=== PATIENT | male | born 1945 | race Caucasian/White ===

== ENCOUNTER → 2017-10-31 09:23 | Outpatient (CLI) | payer MEDICARE, OTHER, SELFPAY | PROVIDERS: PCP Internal Medicine; Visit Provider Orthopaedic Surgery | DX: I89.0 Lymphedema, not elsewhere classified (principal) | CPT/HCPCS: 99213 ==

== ENCOUNTER → 2017-11-12 13:00 | Outpatient (CLI) | payer MEDICARE, OTHER, SELFPAY | PROVIDERS: PCP Internal Medicine; Visit Provider Urology | DX: R31.9 Hematuria, unspecified (principal) | CPT/HCPCS: 81001; 99213 ==

== ENCOUNTER 2017-11-14 14:00 | Outpatient (RCR) | payer MEDICARE, OTHER, SELFPAY ==
--- NOTE | 2017-10-11 12:30 | PTTR_ITS ---
DATE: 10/11/17 SUBJECTIVE: Rick stating that he had an increase in back pain yesterday after sitting in chairs for prolonged mani period while he waited for his 's doctor appt. Today things have settled down. He did well with his exercises with good relief and he feels he is getting better control of his lower abdominals. Manual therapy: (12150a6). CPA's/UPA's extensively throughout the lumbar and thoracic spine at grade 1++ to 4-- for neuro facilitation as well as pain reduction, improve mobility. Neuro Re-education - (96455 x1): In hook lying position complete TRA with glut isometric contraction, the patient requiring cueing for proper lower trap stabilization and reduce over recruitment of rectus abdominals. From there we are able to proceed with the following series: 1: Hook lying level 1 scissors. 2: Hook lying leg pull x10 3: attempt shoulder segmental bridge, but this produces back pain, so regressed to just gentle posterior pelvic tilt with glut activation. 4: Hook lying abduction isometric 10 seconds x10 5: Hook lying adduction isometric 10 seconds, x10 6: Prone alternating hip extension for glut activation. He has continued care with Sandy Barrett PTA for mobilization, soft tissue work per my instructions (see her note for specifics) Direct treatment time: 30 mins Total treatment time: 30 mins A: Rick requires a significant amount of cueing for proper intrinsic activation and to allow for improvement in body awareness, multiple adjustments needed to reduce his pain, which is secondary to poor muscle recruitment. By the end of treatment, he had developed fairly good body awareness and better activation of his core intrinsics. Anticipate it will take some time to transition more onto global strengthening exercises as he struggling with his local muscle system. JH/dl
--- NOTE | 2017-10-16 11:30 | PTTR_ITS ---
DATE: 10/16/17 SUBJECTIVE: Rick stating he feels his HEP can increase his central LBP. He has been working well with intrinsic isometrics, which do not seem aggravating. His pain today is fairly minimal at a 1 to 1 03/19/09. Manual therapy: ([id number]). Sidelying unilateral knee to chest, lumbar flexion mobilizations and oscillations of a grade 4--, bilateral figure 4 and supine twist mobilizations 4--, bilateral prolonged hamstring stretching to 60 degrees bilaterally. Complete bilateral hip flexor stretching as well, but with good flexibility noted. Unilateral PAs to the lumbar spine grade 1++, STM throughout the thoracolumbar paraspinals, lumbar fascia, bilateral QL's, tone appreciated R greater than L. Therapeutic procedures (39530k6). 1: UE swimmers x10 2: LE swimmers x10 3: Hook lyin)glut strengthening via posterior pelvic tilt, patient unable to maintain proper glut recruitment and has too much weakness to perform full bridge. 4: Prone isometric glut activation with hamstring curl, 0#, x10 bilaterally. 5: Sidelying: bilateral clams x10, utilizing up regulation manual stimulation for proper glut activation which he is able to do well. 6: Sit to stand: Remarkable cueing needed for proper biomechanics and CG to limit falling when performing this due to his instability. Without cueing, he was utilizing a significant amount of compensatory movement when more on his toes and using his gastrocs to stand him up, and forward bending to keep him from falling. We did this with the table elevated. He was instructed in how to complete this at home sitting in a chair, utilizing his hand on the table or counter for support, after patient demonstrated appropriate squat and muscle activation to utilize including his gluts, weight in his heels, and intrinsic TRA, and lower traps. Direct treatment time: 60 mins Total treatment time: 60 mins JH/dl
--- NOTE | 2017-10-18 13:30 | PTTR_ITS ---
DATE: 10/18/17 OBJECTIVE: Co-treatment with CUBA Cruz. Please see her note for specifics. Therapeutic procedures ([id number]). * X See flow sheet: For glut strengthening and general conditioning focusing on appropriate glut activation. * X Provided skilled instruction in proper exercise performance: Max cueing involved in squat form and technique with his exercises. * X Provided skilled manual cues to facilitate proper muscle recruitment and/ or movement pattern: For appropriate glut activation and core stabilization. Direct treatment time: 15 minutes Total treatment time: 15 minutes Isabel Villela, REAMING MACHINE OPERATOR FOR [employer]IC
--- NOTE | 2017-10-18 15:35 | PTTR_ITS ---
DATE: 10/18/17 SUBJECTIVE: Pt states that today he feels the best that he has in a while. He changed his chair that he sits in to work on his computer which he thinks that this is helping. He has been working on his glute activation. OBJECTIVE: Therapeutic procedures (86271u0). * X See flow sheet * X Provided skilled instruction in proper exercise performance * X Provided skilled manual cues to facilitate proper muscle recruitment and/ or movement pattern * X Other: Cue required primarily for lower trap activation, TrA and complete up regulation stimulation through the glutes throughout for proper activation. Direct treatment time: 45 minutes Total treatment time: 45 minutes he was then seen by Isabel Villela PTA for completion of his program per my direction. ASSESSMENT: Rick is demonstrating remarkable improvements in glute activation and we are able to proceed with strengthening today. He had minimal complaints with pain so I took advantage of this and performed more conditioning which ultimately result in a decreased back pain due to decrease strain through the back as he has extensibility. PLAN: Proceed per POC progressing with strengthening is he has good tolerance as primary focus.
--- NOTE | 2017-10-22 10:40 | PTTR_ITS ---
DATE: 10/22/17 OBJECTIVE: * [X] Aquatic Therapy - (89914 x2): Patient completed a therapeutic exercise program in an aquatic setting for core strengthening and global conditioning, as per flow sheet. Patient required max cuing throughout session for core activation and postural awareness. Patient was encouraged to perform activities without pool wall support, to focus on balance reeducation and core stabilization and activation. Patient ended with deep water biking and traction. Direct treatment time: 35 minutes Total treatment time: 45 minutes
--- NOTE | 2017-10-24 10:53 | NT_ITS ---
10/24/17 Cancelled today's aquatic therapy session, due to c/o low back soreness. Ailyn Ayers, LIBRARIAN SPECIAL COLLECTIONS
--- NOTE | 2017-10-28 11:26 | PTTR_ITS ---
DATE: 10/28/17 SUBJECTIVE: Patient feels had an increase in back pain to a 4/10 after completing pool therapy, localized to his central low back. He feels is butt is stronger, but he thinks his low back is weak because of this pain he experienced following the pool. OBJECTIVE: KX applied to all codes N/A at this time. Manual therapy: (69638k). Therapeutic procedures ([id number]). * HEP review: * x See flow sheet: * x Provided skilled instruction in proper exercise performance: * x Provided skilled manual cues to facilitate proper muscle recruitment and/ or movement pattern: * x Other: Remarkable cueing needed to recruite buttocks, and improve movement pattern with exercises. Observation: Overactive lumbar paraspinals, as he tries to compensate for poor stabilizing control of glutes and TrA, poor facilitation of lower traps. Eventually able to correct movement and improve muscle pattern, with repetitive movement. He was then seen by Isabel Villela PTA for continued treatment per my direction. Direct treatment time: 30 minutes Total treatment time: 30 minutes Assessment: Continues to present with over active paraspinals, which would explain his central low back pain. He is now able to activate his TrA and glutes , but struggles with more dynamic movements. Anticipate this will continue as we work on his strengthening and isolated core recruitment. His body awareness is very poor, and patient is struggling to recognize this. Will defer aquatics until he gains better intrinsic stability, to avoid over facilitation and strain of paraspinals. Plan: Proceed per POC.
--- NOTE | 2017-10-28 15:10 | PTTR_ITS ---
DATE: 10/28/17 OBJECTIVE: Co-treatment with CUBA Cruz. Please see her note for specifics. Manual therapy: ([id number]). Performed flexion based stretching including single knee to chest, double knee to chest, double knee with rotation all performed lightly and within pt's tolerance. In prone he received IASTM down regulation through the paraspinals of the thoracic and lumbar spine. Therapeutic procedures (20015q5). Perform intrinsic stabilization exercise in supine and prone positions with constant cueing for appropriate movement mechanics and muscle facilitation. He also performed some standing rows and lower trap activation with tactile cueing for appropriate technique and muscle activation. Direct treatment time: 25 minutes Total treatment time: 25 minutes
--- NOTE | 2017-11-01 10:00 | PTTR_ITS ---
DATE: 11/01/17 SUBJECTIVE: Rick stating that he is doing remarkably better. He continues to have some low grade central LBP but overall improved since start of PT. OBJECTIVE: Therapeutic procedures (19967q2). * X See flow sheet: * X Provided skilled instruction in proper exercise performance: Continued with exercise under the supervision of Ailyn Ayers LAYAWAY CLERK per my direction see her note. Direct treatment time: 30 minutes Total treatment time: 30 minutes
--- NOTE | 2017-11-01 12:50 | IE_ITS ---
Date: October Referring: Dr. Andrea Mirza Diagnosis: Bilateral LE lymphedema P.T. 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 He reports a heaviness and limited motion in his legs due to the swelling, difficulty walking, particularly up hills and inability to run like he used to due to LE swelling. Would like education regarding methods to reduce LE swelling and improve his mobility. He is being followed by CUBA Cruz here in this clinic at this time for treatment for low back pain, spinal hypomobility, spinal curvature and intrinsic core and hip strengthening. Will continue to work with Rossy Chen per POC established 10/09/17 for strengthening and exercise issues. Will see me for short duration during his plan of care for lymphedema management. Pain Ratin/10 bilateral LE's. 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 Current Level of Function: Since his diagnosis of appendicial cancer with subsequent treatment, he has had increased LE lymphedema and swelling, which has limited his ability to perform his ADL's. He finds it difficult to complete a walk uphill that used to be easy for him, fatigue and weakness with performing any running activities. Quite a bit of difficulty with squatting and moderate difficulty with lifting objects off the floor, rolling over in bed and general mobility day to day. Previous Treatment: None for lymphedema. He is currently under Rossy Chen PT plan of care for generalized strengthening and exercise program. Social: Lives in [place] with his in a house. Does have daily activity of sitting at a computer 5-6 hrs. 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 Falls in the last year: __X__Yes - How many? __2 due to weakness post- operatively_ Reported hospitalizations in the last year - __X__ Yes - Dates of admission/ reason: for pneumonia and appendix removal. See medial records for details. Medications: Eloquis, Lasix, multi-vitamin, magnesium supplement. Quality of Life: __X__ Good Standardized Measures: Lower Extremity Functional score: __56% disability at this time__ OBJECTIVE: Observation: Examination of bilateral LE's performed. Pt with edema noted throughout bilateral LE's. Skin appears clean, dry and intact with no evidence of wounds or cellulitis. Skin is slightly pink from foot to knee bilaterally. Is firm to touch due to tightness of edema throughout skin. No swelling noted in toes or dorsum of bilateral feet. Gait: Step through gait pattern without assistive device. Flexed posture. Decreased stride and eber bilaterally. Edema: Circumferential measurements RLE Mid foot 25.5 cm 10: 28 cm 20: 25 cm 30: 35.5 cm 40: 42 cm 50: 41.5 cm 60: 42 cm 70: 46 cm LLE Mid foot 25.5 cm 10: 27 cm 20: 24.5 cm 30: 34.5 cm 40: 40.5 cm 50: 43 cm 60: 44 cm 70: 48.5 cm Lymphedema measurements and circumferential measurements indicate increased edema RLE from foot to knee and LLE from knee to thigh. Diffuse edema throughout bilateral LEs. : ROM: AROM WNL bilateral LEs. Strength: Bilateral hip flexors 4/5 Bilateral quads 4/5 Bilateral dorsiflexion and plantar flexion 5/5 Neurological: Pt is intact to light touch and proprioception throughout bilateral LEs. Motor control and kinesthetic awareness are intact. No evidence of peripheral neuropathy or sensation deficits in LEs. Special Tests: Pt negative for Stemmer sign bilateral 2nd toes of feet. Negative for swelling in dorsum of feet. Treatment: Initial evaluation and assessment of his functional abilities.IE: [id number] Patient Education: Pt issued lymphedema educational packet. Instructed in difference between primary and secondary lymphedema. At this time, pt appears to have bilateral LE secondary lymphedema due to appendicial cancer with surgical procedures as listed above.Discussed with pt anatomy and physiology of lymphatic system and educated regarding lymphatic flow. Discussed with pt management of lymphedema including Complete Decongestive Therapy (CDT) consisting of: 1. Skin care and hygiene: At this time, pt has good skin care and hygiene. Will continue with current regimen at home. 2. Manual lymphatic drainage (MLD): Will initiate MLD for bilateral LEs and educate pt regarding self MLD program. He may require assistance of spouse to perform LE MLD. Will discuss this with spouse at home. 3.Compression: At this time, pt does not have compression garments. Would benefit from open toe thigh high 20-30 mmHg bilateral compression garments.Discussion with pt regarding options. At this time, pt wishes to pursue [employer] website and purchase online. Will discuss with pt at next session proper size and assist him in ordering thigh high compression garments. 4. Exercise and elevation: Pt is currently perform PT plan of care under CUBA Cruz. Will continue as outlined by Rossy. Educated pt regarding elevation of bilateral LE's 30 min./day to reduce lymphedema and edema. Pt agreed to initiate. Direct treatment time: 60 min Total treatment time: 60 min ASSESSMENT: Patient is a 72-year-old male, referred for PT services with the diagnosis of bilateral LE lymphedema in setting of stage IV appendicial cancer s/p chemotherapy and sitoreductive surgery with umbilectomy, omentectomy, splenectomy, R hemicolectomy, L colectomy and loop ileostomy, small bowel tumor removal, appendix removal with post-operative pulmonary embolism. Patient presents with clinical signs and symptoms consistent with bilateral LE lymphedema, as demonstrated by the following impairment level findings: circumferential measurements, evident edema and swelling in bilateral LE's, heaviness and stiffness throughout bilateral LE's with decreased mobility that has required him to have increased shoe size from 13-14 to accommodate swelling in the feet. Currently swelling in the feet has resolved and he is back to size 13,but continues to maintain having a large shoe size for when swelling increases. Limited ability to run and walk uphills and perform running and ADLs at home. Impairments are contributing to the following functional limitations: Patient is assessed as: Low 58912 complexity, based on the following: History: See comorbidities and social history. Examination: See above for functional limitations and impairments. Presentation: Stable Decision-Making: Low complexity 56 % Disability based on LEFS __X__ Patient requires skilled PT intervention to remediate the above functional limitations to return to: __X__ Improve Quality of Life and functional ability G-Codes Patient's primary functional limitation is in the category of: __X__ Mobility - walking and moving around : [id number] based on LEFS Projected goal: __X__ Mobility - walking and moving around: [id number] KX modifier to be utilized as justified by above documentation for necessity of continued Physical Therapy intervention to attend to functional deficits which have not been fully remediated as they approach their Medicare cap. GOALS STG: __1__ weeks. 1. Pt independent with self MLD techniques for bilateral LE lymphedema. 2. Pt obtain bilateral open toe thigh high compression garments 20-30 mmHg and be able to don and doff independently. LTG: __3__ weeks. 1. Pt independent with lymphedema management program. 2. Decrease bilateral limb size by 2 cm. 3. Pt continue with exercise program per Rossy Chen, PT. PLAN: Patient to be seen 2 x per week, for 3 weeks, adjusting frequency of visits per patient symptoms and response to treatment. Treatment to include: X Manual therapy - [id number]: for bilateral LE lymphedema, MLD and instruction in self MLD program. X Therapeutic exercise - [id number] primary PT Rossy Chen. X Self care training [id number]: for lymphedema management program. Thank you for this referral. Please do not hesitate to contact me with any questions or concerns regarding this patient's plan of care. Sadia Caldwell PT, CLT MEDICAREDr. Mendez, please sign below and return to PT if you agree with above POC. Tommy Mendez MD Date
--- NOTE | 2017-11-01 15:06 | PTTR_ITS ---
DATE: 11/01/17 OBJECTIVE: Co-treatment with primary therapist, CUBA Cruz. Please see her note for specifics. Therapeutic procedures (61325d3). * [X] See flow sheet: Patient completed an intrinsic core stabilization and general strengthening program, as per flow sheet. Patient was able to tolerate a progression in his program today, with good tolerance. * [X] Provided skilled instruction in proper exercise performance. * [X] Provided skilled manual cues to facilitate proper muscle recruitment and/or movement pattern: Patient requires constant tactile cuing for appropriate movement mechanics and muscle activation/isolation. Direct treatment time: 30 minutes Total treatment time: 30 minutes
--- NOTE | 2017-11-05 16:10 | PTTR_ITS ---
DATE: 11/05/17 SUBJECTIVE: Pt comes with to session. Pt states he has not had a chance to review Lymphedema packet, agrees to review after today's session and come next session with questions if he has any. Pt has not reviewed [employer] website for compression garments, discussed with patient and that he would benefit from thigh high 20-30mmhg open toe bilateral compression garments, pt to look into website to decide if he wants to order from there or order from [employer]. Pain number: 0/10 OBJECTIVE: Self Care Training - (82809 x2): Pt issued handout for manual lymphatic drainage process for Bilateral LE lymphedema. Instructed patient and in the following sequence: bilateral SCF collectors , bilateral axillary nodes,, ( not abdomen MLD), bilateral groin nodes finishing with bilateral LE's proximally first, followed by distal finishing with dorsum of bilateral feet.. Pt able to perform upper body sequence, able to assist with bilateral LE drainage. Both performed good hand positions, pressure and techniques. Pt instructed to perform self MLD 1x/day. Reviewed CDT components with patient and encouraged to apply all 4 aspects together. Pt will begin home CDT with all 4 aspects tomorrow and will review process at next session. Direct treatment time: 30min Total treatment time: 30min Sadia Caldwell PT. CLT
--- NOTE | 2017-11-05 16:11 | PTTR_ITS ---
DATE: 11/05/17 OBJECTIVE: Co Treatment with CF Therapeutic procedures (97122d9). * X Provided skilled instruction in proper exercise performance: Pt completed core stabilization, glute strengthening, scapular stabilization ther ex, LE strengthening, functional sit to stands, and cardio on the Nu Step/ mini stepper. Pt required mod vc's for correction of his posture and mechanics with his ther ex specifically with his PT. Direct treatment time: 35 Total treatment time: 40
--- NOTE | 2017-11-07 15:30 | PTTR_ITS ---
DATE: 11/07/17 Co-treat with Sadia Caldwell, PT,CLT (see her note for specifics} Therapeutic procedures ([id number]). Therex consisting of open/close chain LE strengthening activities, as well as some glut strengthening, functional sit to stand, core stabilization as well as some cardiovascular on the mini stepper and NuStep. Direct treatment time: 30 mins Total treatment time: 40 mins MD/dl
--- NOTE | 2017-11-07 16:10 | PTTR_ITS ---
DATE: 11/07/17 SUBJECTIVE: Pt comes with to session. Pt states he has been performing self MLD treatment at home and feels comfortable with the process. would like to review it today. Pain number: 0/10 OBJECTIVE: Self Care Training - (54628 x1): Reviewed manual lymphatic drainage process for Bilateral LE lymphedema. Patient performed bilateral SCF collectors, bilateral axillary nodes,, ( not abdomen MLD), bilateral groin nodes finishing with bilateral LE's proximally first, followed by distal finishing with dorsum of bilateral feet. Pt able to perform techniques independently with cues for maintaining bilateral leg extension for drainage. Pt would benefit from bilateral hamstring and gastroc stretches. instructed in wall hamstring stretch for 30 seconds bilaterally and standing gastroc step stretch 30 seconds bilaterally. Pt to perform daily with self MLD. Therapeutic procedure 36996 x1: Pt issued handout for LE exercises for strengthening and movement of lymphedema. Pt able to perform independently, see handout for details ASSESSMENT: Pt doing well with skin care, self MLD, therapeutic exercise and elevation. He has ordered bilateral thigh high 20-30mmhg compression garments from [employer] and will begin using them when they arrive. Pt to transition at this time to home Lymphedema management program. Once he receives garments and wears for one week he will come back to clinic for re-measurement of LE circumferential measurements. Direct treatment time: 30min Total treatment time: 30min Sadia Caldwell PT. CLT
--- NOTE | 2017-11-12 14:46 | PTTR_ITS ---
DATE: 11/12/17 SUBJECTIVE: Pt reports that his garments came in and he is wearing them. He reports that he is afraid the the curvature in his spine might be why he is experiencing his back discomfort and is not sure if the ther ex portion of his session is helpful. OBJECTIVE: Therapeutic procedures (40001u5). * X Provided skilled instruction in proper exercise performance: I briefly spoke with PT Angelica Chen about his concerns and she would like him to make a follow up appointment with her and until then cont to complete his ther ex program. Pt completed core stabilization ther ex, glute strengthening, functional sit to stands, LE strengthening, and cardio on the mini stepper/ Nu Step. Pt was able to tolerate a slight increase in his program today. Direct treatment time: 45 Total treatment time: 50
--- NOTE | 2017-11-14 15:18 | PTTR_ITS ---
DATE: 11/14/17 OBJECTIVE: Therapeutic procedures ([id number]). * X Provided skilled instruction in proper exercise performance: Pt completed core stabilization ther ex, glute strengthening, LE strengthening, functional sit to stands, scapular stabilization ther ex, and cardio on the mini stepper and Nu Step. Direct treatment time: 30 Total treatment time: 40
== END 2017-11-15 23:59 | disposition home or self-care (01) ==
LOC: PT 14:00
PROVIDERS: PCP Internal Medicine; Referring Provider Internal Medicine; Visit Provider Internal Medicine
DX: M54.5 Low back pain (principal); M62.81 Muscle weakness (generalized); R29.898 Other symptoms and signs involving the musculoskeletal system; Z92.21 Personal history of antineoplastic chemotherapy
CPT/HCPCS: 97110; 97113; 97140; 97161; 97535; G8978

== ENCOUNTER 2017-11-20 01:19 | Outpatient (CLI) | payer MEDICARE, OTHER, SELFPAY ==
--- NOTE | 2017-11-20 10:30 | DI.RAD_ITS ---
SYMPTOMS/DIAGNOSIS: LOW BACK PAIN, M54.5 LUMBAR SPINE: AP, lateral and bilateral oblique views. Comparison CT scan of the abdomen and pelvis is 06/25/17. 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 Note is made of an inferior vena cava filter. There is surgical material seen in the right lower quadrant of the abdomen. No spondylolysis or spondylolisthesis is identified. The bones appear osteopenic. There is a superior compression deformity of L1 not present on the CT scan from 06/25/17. There is a loss of approximately 20% of the height of the vertebral body. There is also a superior compression deformity of the L2 vertebral body, not present on 06/25/17. There is a loss of approximately 20% of the height of the vertebral body. No other compression fractures are seen. Mild degenerative changes are present throughout the lumbar spine, particularly at L4-L5 where there is joint space narrowing. Facet arthropathy is present throughout. Vascular calcifications are identified. IMPRESSION: 1. Compression deformities of the superior endplates of L1 and L2 with loss of approximately 20% of the height of the vertebral bodies at each level. These were not present on the CT scan from 06/25/17. No other compression fractures are seen. 2. Mild to moderate degenerative changes in the lumbar spine. 3. Osteopenia.
== END 2017-11-20 01:39 ==
PROVIDERS: PCP Internal Medicine; Visit Provider Internal Medicine
DX: M54.5 Low back pain (principal); M85.88 Other specified disorders of bone density and structure, other site; M47.816 Spondylosis without myelopathy or radiculopathy, lumbar region; M48.56XA Collapsed vertebra, not elsewhere classified, lumbar region, initial encounter for fracture
CPT/HCPCS: 72110

== ENCOUNTER 2018-03-21 12:52 | Outpatient (REF) | payer MEDICARE, OTHER, SELFPAY ==
[2018-03-21 20:57] LABS: HCT 29.1 % (40.0-50.0); HGB 8.7 g/dL (13.5-17.5); Mean Corp. HGB Concentration 29.9 g/dL (32.0-36.0); Mean Corpuscular Hemoglobin 22.1 pg (27.0-33.0); Mean Platelet Volume 10.7 fL (8.0-11.0); Platelet Count 493 x1000/uL (130-400); RBC 3.93 m/cumm (4.50-6.00); RBC Distribution Width 18.4 % (11.8-14.1); White Blood Cell Count 5.68 k/cumm (4.4-10.8)
[2018-03-21 21:08] LABS: ALT 29 U/L (12-78); AST 33 U/L (15-37); Albumin 3.2 g/dL (3.4-5.0); Alkaline Phosphatase 112 U/L (46-116); Anion Gap 5.9 mmol/L (3-11); BUN 19 mg/dL (7-18); Bilirubin, Total 0.7 mg/dL (0.2-1.0); CO2 29.1 mmol/L (21.0-32.0); CREATININE 0.93 mg/dL (0.70-1.30); Calcium 8.8 mg/dL (8.5-10.1); Chloride 106 mmol/L (98-107); Glucose 81 mg/dL (70-100); Potassium 4.8 mmol/L (3.5-5.1); Sodium 141 mmol/L (136-145); Total Protein 6.6 g/dL (6.4-8.2)
[2018-03-24 15:12] LABS: Iron 19 ug/dL (50-175); Total Iron Binding Capacity 368 ug/dL (250-450); Transferrin Sat 5 % (20-55)
== END 2018-03-21 13:12 ==
LOC: NCHCN 12:52
PROVIDERS: PCP Internal Medicine; Visit Provider Internal Medicine
DX: C26.9 Malignant neoplasm of ill-defined sites within the digestive system (principal); R60.9 Edema, unspecified; N40.0 Benign prostatic hyperplasia without lower urinary tract symptoms; I48.91 Unspecified atrial fibrillation; Z90.81 Acquired absence of spleen; D50.9 Iron deficiency anemia, unspecified
CPT/HCPCS: 80053; 85027; 83540; 83550

== ENCOUNTER 2018-07-08 13:16 | Outpatient (REF) | payer MEDICARE, OTHER, SELFPAY ==
[2018-07-08 13:44] LABS: Bilirubin Negative (Negative); Blood Moderate (Negative); Clarity Clear; Glucose Negative (Negative); Ketones Negative (Negative); Leukocyte Esterase Trace (Negative); Nitrite Negative (Negative); Specific Gravity 1.015 (1.005-1.025); Urobilinogen 0.2 EU/dL (Up TO 0.2); pH 5.5 (5-8)
[2018-07-08 14:01] LABS: Bacteria Rare HPF (Negative); C & S Indicated? Yes; Casts Negative LPF (Negative); Crystals Negative HPF (Negative); Epithelial Cells Rare HPF (Negative); Mucus Negative (Negative); Other Cells Negative (Negative); RBC 20-50 (0-2)
== END 2018-07-08 13:36 ==
LOC: LBN 13:16
PROVIDERS: PCP Internal Medicine; Visit Provider Urology
DX: R31.0 Gross hematuria (principal)
CPT/HCPCS: 81003; 81015; 87086

== ENCOUNTER → 2018-07-14 15:31 | Outpatient (BNVA) | payer MEDICARE, OTHER, SELFPAY | PROVIDERS: PCP Internal Medicine; Visit Provider Nurse Practitioner Gerontology | DX: R31.29 Other microscopic hematuria (principal); N52.9 Male erectile dysfunction, unspecified | CPT/HCPCS: 99213 ==

== ENCOUNTER 2019-03-31 22:09 | Outpatient (REF) | payer MEDICARE, OTHER, SELFPAY ==
[2019-03-31 21:37] LABS: HCT 37.3 % (40.0-50.0); HGB 11.7 g/dL (13.5-17.5); Mean Corp. HGB Concentration 31.4 g/dL (32.0-36.0); Mean Corpuscular Hemoglobin 27.9 pg (27.0-33.0); Mean Platelet Volume 10.4 fL (8.0-11.0); Platelet Count 470 x1000/uL (130-400); RBC 4.19 m/cumm (4.50-6.00); RBC Distribution Width 16.2 % (11.8-14.1); White Blood Cell Count 5.68 k/cumm (4.4-10.8)
[2019-03-31 21:44] LABS: Bilirubin Negative (Negative); Blood Moderate (Negative); Clarity Clear (Clear); Glucose Negative (Negative); Ketones Negative (Negative); Leukocyte Esterase Trace (Negative); Nitrite Negative (Negative); Specific Gravity 1.015 (1.005-1.025); Urobilinogen 0.2 EU/dL (Up TO 0.2)
[2019-03-31 21:56] LABS: Bacteria Few HPF (Negative); C & S Indicated? Yes; Casts 0-2 Fine Granular LPF (Negative); Crystals Rare Amorphous HPF (Negative); Epithelial Cells Rare HPF (Negative); Mucus Trace (Negative); Other Cells Rare Renal (Negative); RBC >50 HPF (0-2)
[2019-03-31 22:18] LABS: ALT 35 U/L (16-63); AST 36 U/L (15-37); Alkaline Phosphatase 95 U/L (46-116); Anion Gap 7.6 mmol/L (3-11); BUN 17 mg/dL (7-18); Bilirubin, Total 0.5 mg/dL (0.2-1.0); CO2 30.4 mmol/L (21.0-32.0); CREATININE 0.93 mg/dL (0.70-1.30); Chloride 103 mmol/L (98-107); Glucose 100 mg/dL (74-106); Potassium 4.6 mmol/L (3.5-5.1); Sodium 141 mmol/L (136-145); Total Protein 7.1 g/dL (6.4-8.2)
== END 2019-03-31 22:29 ==
LOC: NCHCN 22:09
PROVIDERS: PCP Internal Medicine; Visit Provider Internal Medicine
DX: D50.9 Iron deficiency anemia, unspecified (principal); C26.9 Malignant neoplasm of ill-defined sites within the digestive system; R31.9 Hematuria, unspecified
CPT/HCPCS: 80053; 85027; 81003; 81015; 87086

== ENCOUNTER 2019-04-23 01:31 | Outpatient (CLI) | payer MEDICARE, OTHER, SELFPAY ==
[2019-04-23] MEDS: Omnipaque 350 MG/ML 50 ML BTL PO (07:08)
[2019-04-23] MEDS: Breeza Beverage 473 ML BTL PO (07:09)
--- NOTE | 2019-04-23 08:18 | DI.CT_ITS ---
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 The patient reportedly has a hi story of mucinous GI adenocarcinoma. Examination is compared with most recent prior study of 06/25/2017. There are new mild anterior comp ression fractures of T11 and L1 vertebral bodies. These are of uncertain acuity and significance, pa thologic fracture not excluded, patchy demineralization of the bones is noted indeterminate for bony metastatic disease. There are new lobulated pleural radiodensities on the left which are of fairly low attenuation consis tent with mucinous metastasis. These include pleura adjacent to the cardiac apex. No gross intracar diac mass identified by CT criteria. Abdominal aorta is of normal diameter. No gross vascular occlusion identified involving the major ar terial branches of the aorta. There are widespread presumed peritoneal metastases of low attenuation throughout the abdomen and pel vis. Comparison with prior study of June 2017 shows some apparent interval growth, increased deform ity of multiple small bowel loops without obstruction, increased deformity of hepatic contour, no new intrahepatic lesion, presumed hepatic cysts again noted. Adrenals and kidneys unremarkable except for nonobstructing right renal pelvic calculus. No urinary t ract obstruction. Apart from the peritoneal metastases, no gross retroperitoneal or pelvic adenopathy. IMPRESSION: 1. 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 2. New T11 and L1 compression fractures, question pathologic, question widespread metastatic involvem ent of bone versus demineralization of other causes. Correlation with bone scan may be considered. 3. Increase in intra peritoneal metastases since June 2017. No gross bowel obstruction.
[2019-04-23] MEDS: Omnipaque 350 MG/ML 100 ML BTL IJ (08:57)
== END 2019-04-23 01:51 ==
PROVIDERS: PCP Internal Medicine; Visit Provider Internal Medicine
DX: C26.9 Malignant neoplasm of ill-defined sites within the digestive system (principal); R19.00 Intra-abdominal and pelvic swelling, mass and lump, unspecified site; M48.55XA Collapsed vertebra, not elsewhere classified, thoracolumbar region, initial encounter for fracture; C78.6 Secondary malignant neoplasm of retroperitoneum and peritoneum; C78.2 Secondary malignant neoplasm of pleura
CPT/HCPCS: 74177; J3490; Q9967

== ENCOUNTER 2019-11-30 20:24 | Outpatient (REF) | payer MEDICARE, OTHER, SELFPAY ==
[2019-11-30 21:59] LABS: Abs Immature Grans 0.01 10^3/uL (0.0-0.06); Absolute Basophil Count 0.08 10^3/uL (0.0-0.2); Absolute Eosinophil Count 0.03 10^3/uL (0.0-0.7); Absolute Lymphocyte Count 1.42 10^3/uL (1.2-3.4); Absolute Monocyte Count 0.39 10^3/uL (0.1-0.8); Absolute Neutrophil Count 1.97 10^3/uL (1.2-6.7); Basophils % 2.1; Eosinophils % 0.8; HCT 36.2 % (40.0-50.0); HGB 11.4 g/dL (13.5-17.5); Immature Grans % 0.3; Lymphocytes % 36.4; MCH 26.9 pg (27.0-33.0); MCHC 31.5 % (32.0-36.0); MCV 85.4 fL (80-95); MPV 10.8 fL (8.0-11.0); Neutrophils % 50.4; Nucleated RBC 0 %; Platelet Count 374 10^3/uL (130-400); RBC 4.24 10^6/uL (4.36-5.78); RDW-SD 58.5 fL
[2019-11-30 22:25] LABS: ALT 27 U/L (16-63); AST 31 U/L (15-37); Albumin 2.7 g/dL (3.4-5.0); Alkaline Phosphatase 126 U/L (46-116); BUN 24 mg/dL (7-18); Bilirubin, Total 0.8 mg/dL (0.2-1.0); CREATININE 1.27 mg/dL (0.70-1.30); Calcium 9.1 mg/dL (8.5-10.1); Chloride 104 mmol/L (98-107); Estimated GFR 55.75 (mL/min/1.73m2); Glucose 109 mg/dL (74-106); Potassium 4.1 mmol/L (3.5-5.1); Sodium 140 mmol/L (136-145); Total Protein 6.9 g/dL (6.4-8.2)
[2019-11-30 22:29] LABS: Iron 21 ug/dL (65-175); Total Iron Binding Capacity 194 ug/dL (250-450); Transferrin Sat 11 % (20-55)
[2019-11-30 22:42] LABS: LDH 222 U/L (85-227)
== END 2019-11-30 20:44 ==
LOC: NCHCN 20:24
PROVIDERS: PCP Internal Medicine; Visit Provider Internal Medicine
DX: D50.9 Iron deficiency anemia, unspecified (principal); C26.9 Malignant neoplasm of ill-defined sites within the digestive system; R59.0 Localized enlarged lymph nodes; R11.2 Nausea with vomiting, unspecified
CPT/HCPCS: 80053; 83540; 83550; 83615; 85025

== ENCOUNTER 2019-12-23 19:00 | Outpatient (REF) | payer MEDICARE, OTHER, SELFPAY ==
[2019-12-23 22:00] LABS: Anion Gap 3.3 mmol/L (3-11); BUN 31 mg/dL (7-18); CO2 30.7 mmol/L (21.0-32.0); Calcium 8.7 mg/dL (8.5-10.1); Chloride 104 mmol/L (98-107); Glucose 104 mg/dL (74-106); Sodium 138 mmol/L (136-145)
[2019-12-23 22:04] LABS: HCT 35.9 % (40.0-50.0); HGB 11.4 g/dL (13.5-17.5); MCH 27.5 pg (27.0-33.0); MCHC 31.8 % (32.0-36.0); MCV 86.5 fL (80-95); MPV 11.1 fL (8.0-11.0); Platelet Count 344 10^3/uL (130-400); RBC 4.15 10^6/uL (4.36-5.78); RDW 21.3 % (11.8-14.1); RDW-SD 67.1 fL; WBC 3.54 10^3/uL (4.4-10.8)
== END 2019-12-23 19:20 ==
LOC: NCHCN 19:00
PROVIDERS: PCP Internal Medicine; Visit Provider Internal Medicine
DX: R31.9 Hematuria, unspecified (principal)
CPT/HCPCS: 80048; 80076; 85027; 87086

== ENCOUNTER 2020-01-22 16:50 | Outpatient (REF) | payer MEDICARE, OTHER, SELFPAY ==
[2020-01-22 21:11] LABS: ALT 34 U/L (16-63); AST 50 U/L (15-37); Albumin 2.3 g/dL (3.4-5.0); Alkaline Phosphatase 313 U/L (46-116); Anion Gap 6.1 mmol/L (3-11); BUN 22 mg/dL (7-18); Bilirubin, Total 0.7 mg/dL (0.2-1.0); CO2 27.9 mmol/L (21.0-32.0); CREATININE 1.23 mg/dL (0.70-1.30); Calcium 8.6 mg/dL (8.5-10.1); Chloride 105 mmol/L (98-107); Estimated GFR 57.84 (mL/min/1.73m2); Glucose 101 mg/dL (74-106); Potassium 4.3 mmol/L (3.5-5.1); Sodium 139 mmol/L (136-145); Total Protein 6.3 g/dL (6.4-8.2)
== END 2020-01-22 17:10 ==
LOC: NCHCN 16:50
PROVIDERS: PCP Internal Medicine; Visit Provider Internal Medicine
DX: R31.9 Hematuria, unspecified (principal)
CPT/HCPCS: 80053; 87086

== ENCOUNTER 2020-01-26 18:13 | Outpatient (CLI) | payer MEDICARE, OTHER, SELFPAY ==
--- NOTE | 2020-01-26 | DI.RAD_ITS ---
EXAM: XR CHEST 2V PA LATERAL CLINICAL HISTORY: SOB, R06.02 TECHNIQUE: 2D digital imaging was performed. COMPARISON: CR CHEST 2 VIEWS PA,LAT from 04/24/2017 FINDINGS: MEDIASTINUM: Normal. HEART: Normal. PULMONARY VASCULATURE: Normal. LUNGS: Scarring or atelectasis is seen in the right lung. PLEURAL SPACE: There is lobulated soft tissue in the periphery of the left hemithorax. This may repr esent loculated fluid pleural effusion, empyema, or soft tissue masses. There is a small right pleura l effusion. BONE:Within normal limits for the patient's age. OTHER FINDINGS:Normal. IMPRESSION: Thickened lobulated opacities in the periphery of the left hemithorax. Differential considerations in clude loculated pleural effusion, empyema or soft tissue mass. A CT scan of the chest with contrast i s recommended for further evaluation. DATA REPOSITORY: RADIATION DOSE DELIVERED:
== END 2020-01-26 18:33 ==
PROVIDERS: PCP Internal Medicine; Visit Provider Internal Medicine
DX: R91.8 Other nonspecific abnormal finding of lung field (principal); R06.02 Shortness of breath
CPT/HCPCS: 71046

== ENCOUNTER → 2020-01-27 14:34 | Outpatient (BNVA) | payer MEDICARE, OTHER, SELFPAY | PROVIDERS: PCP Internal Medicine; Referring Provider Internal Medicine; Visit Provider Surgery | DX: R93.89 Abnormal findings on diagnostic imaging of other specified body structures (principal); C80.1 Malignant (primary) neoplasm, unspecified; J90 Pleural effusion, not elsewhere classified; E43 Unspecified severe protein-calorie malnutrition; D64.9 Anemia, unspecified | CPT/HCPCS: 99214; 99243 ==

== ENCOUNTER 2020-01-29 03:27 | Outpatient (CLI) | payer MEDICARE, OTHER, SELFPAY ==
--- NOTE | 2020-01-29 07:15 | DI.CT_ITS ---
EXAM: CT CHEST W CLINICAL HISTORY: pleural effusion and tumor,C80.1,J90,E43,D64.9 TECHNIQUE: Imaging Protocol: Axial computed tomography images with coronal and sagittal reformatted images were created and reviewed CONTRAST MATERIAL: Intravenous: Omnipaque 350 Contrast volume:70 mL. COMPARISON: CR CHEST 2 VIEWS PA,LAT from 04/24/[address] ABDOMEN PELVIS W from 04/23/2019 CR XR CHEST 2V PA LATERAL from 01/26/2020 FINDINGS: Tracheobronchial tree: Patent where visualized. Mediastinum and [place]: No dominant adenopathy or fluid collection. Pulmonary parenchyma: Please see the section on pleura. Pleura: Since the prior examination there has been an interval increase in the diffuse pleural thicke r[place] on the left. The findings likely reflect pleural metastatic disease in this patient with mucino us adenocarcinoma. There is mild pleural thickening on the right. The pleural findings cause compre ssive atelectasis in the left upper, lingular and lower lobes. There is scarring in the lower lobes. Nodular pleural thickening is seen along the left major fissure likely reflecting metastatic diseas e. Pulmonary arteries: Filling defects are seen in branches of the pulmonary arteries to the right upper and lower lobes and the left lower lobe consistent with pulmonary embolic disease. There is no evid ence of a saddle thrombus. There does appear to be prominence of the right ventricle raising the que stion of right heart strain. Heart: Please see the section on pulmonary arteries. Moderate coronary artery calcification. Aorta: Atherosclerosis. Upper abdomen: Interval increase his in the low-attenuation material in the abdomen most consistent with metastatic disease. It causes a mass effect on the visualized abdominal organs. Lymph nodes: Within normal limits. Bones: There can multiple compression fracture deformities in the thoracic and lumbar spine. These a re stable compared to the chest x-ray from 01/26/2020. Soft tissues: Unremarkable. IMPRESSION: 1. Interval progression of the pleural metastatic disease and the abdominal metastatic disease since 04/23/2019. 2. Multiple pulmonary artery emboli with findings suggestive of right heart strain. 3. Findings were discussed with Dr. Ugarte on the date of the examination. RADIATION DOSE DELIVERED: 427.3mGy.cm Total DLP DATA REPOSITORY: All CT scans at this facility are submitted to the National Radiology Data Registry (NRDR) Dose Index Registry (DIR) with the [employer] ([employer]). RADIATION OPTIMIZATION: All CT scans at this facility use at least one of these dose optimization te chniques: automated exposure control; mA and/or kV adjustment per patient size (includes targeted exa ms where dose is matched to clinical indication); or iterative reconstruction.
[2020-01-29] MEDS: Omnipaque 350 MG/ML 100 ML BTL IV (11:24)
[2020-01-29] MEDS: Normal Saline - Diluent 50 ML VIAL IV (11:27)
== END 2020-01-29 03:47 ==
PROVIDERS: PCP Internal Medicine; Visit Provider Surgery
DX: C78.2 Secondary malignant neoplasm of pleura (principal); C79.89 Secondary malignant neoplasm of other specified sites; J90 Pleural effusion, not elsewhere classified; I26.99 Other pulmonary embolism without acute cor pulmonale; E43 Unspecified severe protein-calorie malnutrition; C80.1 Malignant (primary) neoplasm, unspecified
CPT/HCPCS: 71260; J3490